=== PATIENT | male | born 1950 | race Two or more races ===

== ENCOUNTER 2020-03-14 15:09 | Inpatient (IN) | payer OTHER ==
[~2020-03-14] VITALS: Ht 172.7 cm; Wt 87.5 kg
[2020-03-20] MEDS ORDERED: FENOFIBRATE150 MG PO (13:41)
[2020-03-20] MEDS ORDERED: PLAVIX75 MG PO (13:41)
[2020-03-20] MEDS ORDERED: TOPROL XL100 M1 PO (13:41)
[2020-03-20] MEDS ORDERED: PRAVASTATIN SOD40 MG PO (13:42)
[2020-03-20] MEDS ORDERED: METFORMIN HCL500 M3 PO (13:42)
[2020-03-20] MEDS ORDERED: RAMIPRIL5 MG PO (13:42)
[2020-03-26] MEDS ORDERED: OXYC1TAB9 PO (09:55)
== END 2020-03-26 12:19 | disposition home or self-care (01) | DRG 331 ==
LOC: SURH 03-20 12:15 → O/R 03-22 07:50 → SURH 03-22 12:15
PROVIDERS: ADMIT Surgery; ATTEND Surgery
PROC: 0DJD8ZZ Inspection of Lower Intestinal Tract, Via Natural or Artificial Opening Endoscopic (ICD-10-PCS; 2020-03-22)
PROC: 0DTN4ZZ Resection of Sigmoid Colon, Percutaneous Endoscopic Approach (ICD-10-PCS; principal; 2020-03-22 16:00)
DX: K57.32 Diverticulitis of large intestine without perforation or abscess without bleeding (principal); I10 Essential (primary) hypertension

== ENCOUNTER 2021-04-17 16:16 | Emergency (ER) | payer OTHER ==
[~2021-04-17] VITALS: Ht 172.7 cm; Wt 88.0 kg
[~2021-04-17 16:16] MED LIST: FENOFIBRATE150 MG PO; METFORMIN HCL500 M3 PO; OXYC1TAB9 PO; PLAVIX75 MG PO; PRAVASTATIN SOD40 MG PO; RAMIPRIL5 MG PO; TOPROL XL100 M1 PO
== END 2021-04-17 19:39 | disposition home or self-care (01) ==
LOC: ER 16:16
DX: M54.5 Low back pain (principal)